=== PATIENT | male | born 1970 | race Caucasian/White ===

== ENCOUNTER 2017-05-27 03:18 | Emergency (ER) | END 2017-05-27 04:44 | disposition home or self-care (01) | DX: G89.29 Other chronic pain (principal); M54.5 Low back pain; M54.2 Cervicalgia; J44.9 Chronic obstructive pulmonary disease, unspecified; F17.200 Nicotine dependence, unspecified, uncomplicated; G43.909 Migraine, unspecified, not intractable, without status migrainosus ==

== ENCOUNTER 2019-03-21 08:04 | Emergency (ER) | payer OTHER ==
[~2019-03-21] VITALS: Ht 180.3 cm; Wt 79.4 kg
[~2019-03-21 08:04] MED LIST: ATROVENT HFA INHALER; HYDROCODONE-ACETAMIN 5-325 MG; METHYLPRED TAB 4MG
[2019-03-21] MEDS ORDERED: LABE100T5 PO (08:23)
[2019-03-21] MEDS ORDERED: PRED50TA PO (08:23)
[2019-03-21] MEDS ORDERED: ALBUTEROL SULFATE (08:23)
[2019-03-21] MEDS ORDERED: BUDE10.2 INH (08:23)
[2019-03-21] MEDS ORDERED: NAPR-1009 PO (08:24)
--- NOTE | 2019-03-21 08:34 | NUR ---
Dr Zhang at the bedside for MSE. Pt admits quit smoking 2 weeks ago.
[2019-03-21] MEDS ORDERED: ALBUTEROL SULFATE 2.5 MG/3 ML NEBU NEB ONE (08:45)
[2019-03-21] MEDS ORDERED: IV NORMAL SALINE 1000 ML BAG IV ONE (08:45)
[2019-03-21] MEDS ORDERED: MAG HYDROX/AL HYDROX/SIMETH 30 ML LIQUID UDC PO ONE (08:45)
[2019-03-21] MEDS ORDERED: IPRATROPIUM BROMIDE 0.5 MG/2.5 ML NEBU NEB ONE (08:45)
[2019-03-21] MEDS ORDERED: DICYCLOMINE HCL LIQ 10 MG/5 ML UDC PO ONE (08:45)
[2019-03-21] MEDS ORDERED: ASPIRIN 325 MG TABLET PO ONE (08:45)
[2019-03-21] MEDS ORDERED: ASPIRIN 325 MG TABLET ONE (08:48)
[2019-03-21] MEDS ORDERED: MAG HYDROX/AL HYDROX/SIMETH 30 ML LIQUID UDC ONE (08:48)
[2019-03-21] MEDS ORDERED: DICYCLOMINE HCL LIQ 10 MG/5 ML UDC ONE (08:49)
[2019-03-21] MEDS ORDERED: IPRATROPIUM BROMIDE 0.5 MG/2.5 ML NEBU ONE (08:50)
[2019-03-21] MEDS ORDERED: ALBUTEROL SULFATE 2.5 MG/3 ML NEBU ONE (08:50)
[2019-03-21 08:55] LABS: BASOPHILS # (AUTO) 0.1 K/uL (0.0-8.0); BASOPHILS % (AUTO) 0.4 % (0.0-2.0); EOSINOPHILS % (AUTO) 0.1 % (0.0-7.0); HEMATOCRIT 43.2 % (36.7-47.1); HEMOGLOBIN 14.4 g/dL (12.5-16.3); LYMPHOCYTES # (AUTO) 1.6 K/uL (20.0-40.0); LYMPHOCYTES % (AUTO) 9.2 % (20.5-51.5); MEAN CORPUSCULAR HGB CONC 33 g/dL (32.5-36.3); MONOCYTES # (AUTO) 0.8 K/uL (2.0-10.0); MONOCYTES % (AUTO) 4.4 % (0.0-11.0); NEUTROPHILS # (AUTO) 15.1 K/uL (1.8-8.9); NEUTROPHILS % (AUTO) 85.9 % (38.5-71.5); PLATELET COUNT (AUTO) 275 K/uL (152-348); RED BLOOD CELL COUNT(AUTO) 4.36 MIL/uL (4.06-5.63); WHITE BLOOD COUNT (AUTO) 17.6 K/uL (3.6-10.2)
[2019-03-21 09:11] LABS: CREATININE 0.9 mg/dL (0.6-1.3); POTASSIUM 3.6 mmol/L (3.5-5.1)
[2019-03-21 09:17] LABS: BILIRUBIN,DIRECT 0.1 mg/dL (0.0-0.2); BILIRUBIN,TOTAL 0.4 mg/dL (0.2-1.0); TOTAL PROTEIN, SERUM 6.2 g/dL (6.4-8.2)
[2019-03-21] MEDS ORDERED: AZITHROMYCIN 500 MG VIAL IV ONE (09:23)
[2019-03-21] MEDS ORDERED: CEFTRIAXONE 1 G VIAL ONE (09:23)
--- NOTE | 2019-03-21 09:26 | NUR ---
Per patient's current insurance- "This patient is capitated to [facility]." This information is verified by ER registration staff Yudy. Process started for telemetry admission, possible transfer now.
[2019-03-21] MEDS ORDERED: CEFTRIAXONE 1 G in IV DEXTROSE 5% 50 ML IV ONE (09:30)
[2019-03-21] MEDS ORDERED: AZITHROMYCIN IV 500 MG in IV DEXTROSE 5% 250 ML IV ONE (09:30)
--- NOTE | 2019-03-21 09:41 | NUR ---
CARISSA Madrigal spoke to [facility] Physician, awaiting return call back.
--- NOTE | 2019-03-21 11:58 | NUR ---
Lunch provided, pt ate w/ good appetite.
--- NOTE | 2019-03-21 12:05 | NUR ---
Awaiting for [facility] transfer center to provide info for bed and transfer.
--- NOTE | 2019-03-21 12:12 | NUR ---
Recieved call from [employer] rep(Lilly), pt will be transfered to ER and No hospital bed avail at this time. Placed a call to Lily, ANGELIC 1400, Trip # [id number]. pt ia aware of tx and agreed.
--- NOTE | 2019-03-21 12:59 | NUR ---
Attempted to give report to [facility] ER, charge nurse not avail. Spoke to other nurse on unit, he stated to send pt's record with Pt.
[2019-03-21] MEDS ORDERED: HALOPERIDOL 0.5 MG TABLET PO ONE (13:15)
[2019-03-21] MEDS ORDERED: HALOPERIDOL 5 MG TABLET ONE (13:20)
--- NOTE | 2019-03-21 15:04 | NUR ---
Report given to transfer travel assistant, copy of all ER record for today sent w/ pt. Pt left ER in stable condition. Belongings sent w/ pt.
== END 2019-03-21 15:08 | disposition short-term general hospital (02) ==
LOC: ER 08:04
DX: J18.9 Pneumonia, unspecified organism (principal); G43.909 Migraine, unspecified, not intractable, without status migrainosus; F32.9 Major depressive disorder, single episode, unspecified; J44.9 Chronic obstructive pulmonary disease, unspecified; I10 Essential (primary) hypertension; F17.200 Nicotine dependence, unspecified, uncomplicated; Z79.899 Other long term (current) drug therapy
CPT/HCPCS: 36415; 71045; 80048; 80076; 83605 ×2; 83880; 84484; 85025; 87040; 87400; 93005; 94640; 96365; 96367; 99285; J0456; J0696; 70030-TC; A4663; J3490; J3590; J7030; J7050

== ENCOUNTER 2019-05-28 08:25 | Emergency (ER) | payer OTHER ==
[~2019-05-28] VITALS: Ht 180.3 cm; Wt 79.4 kg
[~2019-05-28 08:25] MED LIST changes: +ALBUTEROL SULFATE; -ATROVENT HFA INHALER; +BUDE10.2 INH; -HYDROCODONE-ACETAMIN 5-325 MG; +LABE100T5 PO; -METHYLPRED TAB 4MG; +NAPR-1009 PO; +PRED50TA PO
[2019-05-28 09:09] LABS: BASOPHILS % (AUTO) 0.2 % (0.0-2.0); EOSINOPHILS % (AUTO) 0.1 % (0.0-7.0); HEMATOCRIT 40.7 % (36.7-47.1); HEMOGLOBIN 13.6 g/dL (12.5-16.3); LYMPHOCYTES # (AUTO) 1.6 K/uL (20.0-40.0); MEAN CORPUSCULAR HEMOGLOBIN 32.9 uug (23.8-33.4); MEAN CORPUSCULAR HGB CONC 34 g/dL (32.5-36.3); MEAN CORPUSCULAR VOLUME 98.3 fL (73.0-96.2); MONOCYTES # (AUTO) 0.9 K/uL (2.0-10.0); MONOCYTES % (AUTO) 4.3 % (0.0-11.0); NEUTROPHILS # (AUTO) 17.4 K/uL (1.8-8.9); NEUTROPHILS % (AUTO) 87.4 % (38.5-71.5); PLATELET COUNT (AUTO) 254 K/uL (152-348); RED BLOOD CELL COUNT(AUTO) 4.14 MIL/uL (4.06-5.63); WHITE BLOOD COUNT (AUTO) 19.8 K/uL (3.6-10.2)
[2019-05-28] MEDS ORDERED: CEFTRIAXONE 1 G in IV DEXTROSE 5% 50 ML IV ONE (09:30)
[2019-05-28] MEDS ORDERED: AZITHROMYCIN IV 500 MG in IV DEXTROSE 5% 250 ML IV ONE (09:30)
[2019-05-28 09:32] LABS: POTASSIUM 3.4 mmol/L (3.5-5.1)
[2019-05-28] MEDS ORDERED: CEFTRIAXONE /D5W 50ML IVPB **ER PYXIS IV ONE (09:34)
[2019-05-28 09:45] LABS: BILIRUBIN,DIRECT 0.1 mg/dL (0.0-0.2); BILIRUBIN,TOTAL 0.5 mg/dL (0.2-1.0); TOTAL PROTEIN, SERUM 6.2 g/dL (6.4-8.2)
[2019-05-28] MEDS ORDERED: KETOROLAC TROMETHAMINE 15 MG INJ IVP ONE (09:45)
[2019-05-28] MEDS ORDERED: IV NORMAL SALINE 1000 ML BAG IV ONE (09:45)
[2019-05-28] MEDS ORDERED: KETOROLAC TROMETHAMINE 15 MG INJ ONE (09:57)
[2019-05-28] MEDS ORDERED: AZITHROMYCIN 500MG/ D5W 250ML IVPB **ER PYXIS ONLY IV ONE (09:57)
[2019-05-28] MEDS ORDERED: ASPIRIN 81 MG TAB.CHEW ONE (09:57)
[2019-05-28] MEDS ORDERED: ASPIRIN 81 MG TAB.CHEW PO ONE (10:00)
--- NOTE | 2019-05-28 11:05 | NUR ---
talked to [employer] marketing coordinator. dfaxed the clinicals per request to [phone]
--- NOTE | 2019-05-28 11:10 | NUR ---
[facility] info. pt going to , call number [phone]. santhosh smith, [facility] authorization code is [id number].
--- NOTE | 2019-05-28 11:23 | NUR ---
pt going to [facility] via neri, eta 60 min, trip # [id number]
--- NOTE | 2019-05-28 11:31 | NUR ---
[facility] provided for pt per pt request and md garza
--- NOTE | 2019-05-28 12:13 | NUR ---
called to give report to [facility]. put on hold, no body responded. will try again
--- NOTE | 2019-05-28 12:33 | NUR ---
neri at bedside to transfer the pt to [facility]
--- NOTE | 2019-05-28 12:37 | NUR ---
called again to give report, unsuccessfull again. our number was given to sebastián crew to be given to [facility] nurses to call for report.
== END 2019-05-28 12:38 | disposition other institution (70) ==
LOC: ER 08:25
DX: J18.9 Pneumonia, unspecified organism (principal); R07.89 Other chest pain; J44.9 Chronic obstructive pulmonary disease, unspecified; F32.9 Major depressive disorder, single episode, unspecified; I10 Essential (primary) hypertension; F17.290 Nicotine dependence, other tobacco product, uncomplicated; Z79.899 Other long term (current) drug therapy
CPT/HCPCS: 36415; 71045; 80048; 80076; 83605 ×2; 83880; 84145; 84484; 85025; 87040 ×2; 87400; 93005; 96365; 96367; 96375; 99285; 99406; J0456; J0696; J1885; 70030-TC; A4663; J7030

== ENCOUNTER 2019-07-06 14:10 | Emergency (ER) | payer OTHER ==
[~2019-07-06] VITALS: Ht 180.3 cm; Wt 80.7 kg
[~2019-07-06 14:10] MED LIST changes: -ALBUTEROL SULFATE
[2019-07-06] MEDS ORDERED: DILT180C66 PO (14:28)
--- NOTE | 2019-07-06 14:35 | NUR ---
Patient seen by
[2019-07-06] MEDS ORDERED: IV NORMAL SALINE 1000 ML BAG IV ONE (14:45)
[2019-07-06] MEDS ORDERED: ONDANSETRON 4 MG/2 ML VIAL IV ONE (14:45)
[2019-07-06] MEDS ORDERED: ONDANSETRON 4 MG/2 ML VIAL ONE (14:54)
[2019-07-06 14:59] LABS: *BILIRUBIN,URIN NEGATIVE (NEGATIVE); *BLOOD, URINE NEGATIVE (NEGATIVE); *CLARITY,URINE CLEAR (CLEAR); *COLOR,URINE YELLOW (YELLOW); *KETONES,URINE NEGATIVE (NEGATIVE); *UROBILINOGEN,URINE 0.2 E.U./dl (NORMAL); LEUKOCYTE ESTERASE ,URINE NEGATIVE (NEGATIVE); NITRITE, URINE NEGATIVE (NEGATIVE); PH,URINE 6.5 (5.0-8.0); UGLUCOSE NEGATIVE (NEGATIVE)
[2019-07-06] MEDS ORDERED: IOHEXOL 300MG/ML 100 ML INFUS..BTL ONE (15:02)
[2019-07-06] MEDS ORDERED: IV NORMAL SALINE 250 ML IV ONE (15:02)
[2019-07-06] MEDS ORDERED: SWABABLE VALVE TRANSFER SET EA MC ONE (15:02)
[2019-07-06 15:03] LABS: BASOPHILS % (AUTO) 0.1 % (0.0-2.0); HEMATOCRIT 35.5 % (36.7-47.1); HEMOGLOBIN 12.2 g/dL (12.5-16.3); LYMPHOCYTES # (AUTO) 0.9 K/uL (20.0-40.0); LYMPHOCYTES % (AUTO) 7.9 % (20.5-51.5); MEAN CORPUSCULAR HEMOGLOBIN 33.3 uug (23.8-33.4); MEAN CORPUSCULAR HGB CONC 34 g/dL (32.5-36.3); MEAN CORPUSCULAR VOLUME 97.3 fL (73.0-96.2); MONOCYTES # (AUTO) 0.8 K/uL (2.0-10.0); MONOCYTES % (AUTO) 7.4 % (0.0-11.0); NEUTROPHILS # (AUTO) 9.7 K/uL (1.8-8.9); NEUTROPHILS % (AUTO) 84.6 % (38.5-71.5); PLATELET COUNT (AUTO) 401 K/uL (152-348); RED BLOOD CELL COUNT(AUTO) 3.65 MIL/uL (4.06-5.63); WHITE BLOOD COUNT (AUTO) 11.4 K/uL (3.6-10.2)
[2019-07-06 15:05] LABS: POTASSIUM 3.4 mmol/L (3.5-5.1)
[2019-07-06 15:12] LABS: BILIRUBIN,DIRECT 0.1 mg/dL (0.0-0.2); BILIRUBIN,TOTAL 0.3 mg/dL (0.2-1.0); CREATININE 0.9 mg/dL (0.6-1.3)
--- NOTE | 2019-07-06 15:14 | NUR ---
Patient taken down for ct.
[2019-07-06 15:28] LABS: BAND % (MANUAL) 1 % (0-10); LYMPHOCYTES % (MANUAL) 8 % (20-40); NEUTROPHILS % (MANUAL) 81 % (42-75)
[2019-07-06 15:29] LABS: MONOCYTES % (MANUAL) 10 % (2-10)
--- NOTE | 2019-07-06 15:35 | NUR ---
patient back from CT.
[2019-07-06] MEDS ORDERED: FAMOTIDINE. 20 MG/2 ML VIAL IV ONE ×2 (16:25→16:30)
[2019-07-06] MEDS ORDERED: MAGNESIUM HYDROXIDE 30 ML LIQUID UDC ONE (16:27)
[2019-07-06] MEDS ORDERED: LIDOCAINE VISCUS 2% 15 ML UDC ONE (16:29)
[2019-07-06] MEDS ORDERED: LIDOCAINE VISCUS 2% 15 ML UDC MM ONE (16:30)
[2019-07-06] MEDS ORDERED: MAG HYDROX/AL HYDROX/SIMETH 30 ML LIQUID UDC PO ONE (16:30)
--- NOTE | 2019-07-06 16:38 | NUR ---
DCD instructiona and prescription given to patient who verbalized understanding. IV line dcd. patient left room ambulatory AAOx4. No c/of discomfort.
--- NOTE | 2019-07-06 16:48 | NUR ---
at this time patient requesting breathing treatment, Dr. spann and RT called in the unit.
[2019-07-06] MEDS ORDERED: ALBUTEROL SULFATE 2.5 MG/3 ML NEBU ONE (16:55)
[2019-07-06] MEDS ORDERED: ALBUTEROL SULFATE 2.5 MG/3 ML NEBU NEB ONE (17:00)
[2019-08-06] MEDS ORDERED: LABE100T5 PO (17:25)
[2019-08-06] MEDS ORDERED: ALBU8.5H8 IH (17:25)
[2019-08-06] MEDS ORDERED: HYDR-4384 PO (17:25)
[2019-08-06] MEDS ORDERED: TRAM50TA2 PO (17:25)
[2019-08-06] MEDS ORDERED: FLUT1BLS12 IH (17:25)
== END 2019-07-06 17:22 | disposition home or self-care (01) ==
LOC: ER 14:10
DX: K59.00 Constipation, unspecified (principal); F17.200 Nicotine dependence, unspecified, uncomplicated; G43.909 Migraine, unspecified, not intractable, without status migrainosus; J44.9 Chronic obstructive pulmonary disease, unspecified; F32.9 Major depressive disorder, single episode, unspecified; I10 Essential (primary) hypertension; Z79.899 Other long term (current) drug therapy; Z60.2 Problems related to living alone
CPT/HCPCS: 36415; 74177; 80048; 80076; 81001; 83690; 85007; 85025; 94640; 96374; 96375; 99285; J2405; J3490; Q9967; 70030-TC; A4663; J7030; J7050

== ENCOUNTER 2019-08-06 17:09 | Emergency (ER) | payer OTHER ==
[~2019-08-06] VITALS: Ht 175.3 cm; Wt 78.9 kg
--- NOTE | 2019-08-06 18:23 | NUR ---
Dr [email or web address], MSE in progress
[2019-08-06 18:49] LABS: BASOPHILS % (AUTO) 0.2 % (0.0-2.0); EOSINOPHILS # (AUTO) 0.1 K/uL (0.0-0.7); EOSINOPHILS % (AUTO) 1.1 % (0.0-7.0); HEMATOCRIT 34.9 % (36.7-47.1); HEMOGLOBIN 12.1 g/dL (12.5-16.3); LYMPHOCYTES # (AUTO) 2.8 K/uL (20.0-40.0); LYMPHOCYTES % (AUTO) 33.3 % (20.5-51.5); MEAN CORPUSCULAR HEMOGLOBIN 33.4 uug (23.8-33.4); MEAN CORPUSCULAR HGB CONC 35 g/dL (32.5-36.3); MONOCYTES # (AUTO) 0.5 K/uL (2.0-10.0); MONOCYTES % (AUTO) 6.5 % (0.0-11.0); NEUTROPHILS % (AUTO) 58.9 % (38.5-71.5); PLATELET COUNT (AUTO) 535 K/uL (152-348); RED BLOOD CELL COUNT(AUTO) 3.63 MIL/uL (4.06-5.63); WHITE BLOOD COUNT (AUTO) 8.4 K/uL (3.6-10.2)
[2019-08-06 18:50] LABS: CARBON DIOXIDE 28 mmol/L (21-32); CHLORIDE 104 mmol/L (98-107); CREATININE 1.1 mg/dL (0.6-1.3); GLUCOSE 123 mg/dL (74-106); UREA NITROGEN, BLOOD 14 mg/dL (7-18)
[2019-08-06 18:56] LABS: ACETAMINOPHEN < 2.0 ug/mL (10-30); ALANINE AMINOTRANSFERASE 23 U/L (16-63); ALKALINE PHOSPHATASE 66 U/L (50-136); ASPARTATE AMINOTRANSFERASE 10 U/L (15-37); BILIRUBIN,DIRECT 0.1 mg/dL (0.0-0.2); BILIRUBIN,TOTAL 0.2 mg/dL (0.2-1.0); ETHANOL < 3 MG/DL (0-0); TOTAL PROTEIN, SERUM 5.7 g/dL (6.4-8.2)
[2019-08-06] MEDS ORDERED: POTASSIUM CHLORIDE 20 MEQ TAB.PRT.SR PO ONE (19:15)
[2019-08-06 19:43] LABS: *BILIRUBIN,URIN NEGATIVE (NEGATIVE); *BLOOD, URINE NEGATIVE (NEGATIVE); *CLARITY,URINE CLEAR (CLEAR); *COLOR,URINE YELLOW (YELLOW); *KETONES,URINE NEGATIVE (NEGATIVE); *UROBILINOGEN,URINE 0.2 E.U./dl (NORMAL); LEUKOCYTE ESTERASE ,URINE NEGATIVE (NEGATIVE); NITRITE, URINE NEGATIVE (NEGATIVE); UGLUCOSE NEGATIVE (NEGATIVE)
[2019-08-06 19:51] LABS: CALCIUM OXALATE CRYSTALS,UR FEW /HPF (NONE SEEN); MUCUS,URINE MANY /LPF (0-FEW); WBC,URINE 0-3 /HPF (0-3)
[2019-08-06 19:55] LABS: *AMPHETAMINE, URINE NEGATIVE (NEGATIVE); *BARBITURATE, URINE NEGATIVE (NEGATIVE); *CANNABINOID, URINE NEGATIVE (NEGATIVE); *COCCAINE, URINE NEGATIVE (NEGATIVE); *OPIATE, URINE NEGATIVE (NEGATIVE); *PHENCYCLIDINE SCREEN,URINE NEGATIVE (NEGATIVE)
--- NOTE | 2019-08-06 20:02 | NUR ---
SPOKE WITH PINKY FOR EVAL. PER DR BENZ PATIENT MEDICALLY CLEARED.
--- NOTE | 2019-08-06 20:15 | NUR ---
Patient moved from RM 3 to RM 2A, security at bedside for patient watch. SR up x 2 for safety. Patient calm and cooperative.
[2019-08-06] MEDS ORDERED: POTASSIUM CHLORIDE 20 MEQ TAB.PRT.SR ONE (20:18)
--- NOTE | 2019-08-06 21:04 | NUR ---
Morrisy psych associate quality engineer came to evaulate patient. Pt placed on a voluntary hold.
--- NOTE | 2019-08-06 22:00 | NUR ---
pt asleep refused vital signs. No acute distress.
--- NOTE | 2019-08-06 22:31 | NUR ---
Patient in gurney, resting comfortably. No acute distress, security at bedside for 1:1 observation. SR up x 2 for saftey.
--- NOTE | 2019-08-06 22:54 | NUR ---
Spoke with Corona in the intake at [facility] [phone]. Per Corona they are still reviewing the information.
--- NOTE | 2019-08-07 | NUR ---
Pt asleep at this time. Refused vital signs.
--- NOTE | 2019-08-07 00:09 | NUR ---
Spoke with Maria Guadalupe from [facility] Kush Cardona. per staff still awaiting approval and will call back once there is an update. Provided phone number to ED
--- NOTE | 2019-08-07 01:08 | NUR ---
Patient asleep in [facility]. No acute distress. Pending admission to psych unit, pending accepting facility.
--- NOTE | 2019-08-07 01:50 | NUR ---
Spoke with Maria Guadalupe at [facility], stated that they aware awaiting approval from [facility], and they will call me back when they get an update. Patient asleep in [facility] at this time. Refused vital signs.
--- NOTE | 2019-08-07 02:51 | NUR ---
Placed call to [facility], was informed that they have no information on this patient at this time.
--- NOTE | 2019-08-07 03:39 | NUR ---
Received call from Maria Guadalupe at [facility] Kush Martinez, per Maria Guadalupe, they are still awaiting approval from electrician apprentice powerhouse at [facility].
--- NOTE | 2019-08-07 04:10 | NUR ---
Patient asleep at this time. Refused to be awaken for vital signs. Patient in no acute distress.
--- NOTE | 2019-08-07 05:48 | NUR ---
Patient in [facility], asleep no acute distress, agreed to vital signs. Vital signs stable, denies pain.
--- NOTE | 2019-08-07 07:33 | NUR ---
SBAR report given to Fely.
--- NOTE | 2019-08-07 08:55 | NUR ---
Contacted Corona oil field caser for [facility], stated that he will call back in 5 minutes..
--- NOTE | 2019-08-07 09:20 | NUR ---
[facility] and stated that he will call me back in 5 minutes.
[2019-08-07] MEDS ORDERED: LABETALOL HCL 100 MG TABLET PO ONE (09:45)
[2019-08-07] MEDS ORDERED: LABETALOL HCL 100 MG TABLET ONE (09:45)
[2019-08-07] MEDS ORDERED: DILTIAZEM HCL CD 120 MG CAP.SR.24H PO ONE ×2 (09:45)
[2019-08-07] MEDS ORDERED: predniSONE 20 MG TABLET ONE (09:45)
[2019-08-07] MEDS ORDERED: predniSONE 20 MG TABLET PO ONE (09:45)
[2019-08-07 09:49] VITALS: BP 101/67
--- NOTE | 2019-08-07 09:55 | NUR ---
Call made to Corona, which is now off shift, and [facility] stated that she will contact gas station supervisor and return a call back..
[2019-08-07] MEDS ORDERED: AMOXICILLIN-CLAVUL 875-125MG TABLET PO ONE (10:15)
--- NOTE | 2019-08-07 10:35 | NUR ---
Contacted Claudia to give report for transfer, upon report antibiotic identified as medication given this morning, patient had been on augmentin for Pneumonia (reported by patient and active prescription bottle in personal belongings), a request for cxr made to clear patient for transfer. This keno writer / runner notified that patient may not be accepted if he has active pulmonary concerns.
--- NOTE | 2019-08-07 11:00 | NUR ---
[facility] and does not show pneumonia, and left lung bases show scarring which are unchanged for CXR several months ago.
--- NOTE | 2019-08-07 11:45 | NUR ---
Report called to Gita at [facility]. Vitals stable, no distress noted at this time. Patient calm and cooperative. Discharge to ambulance for transfer pending.
--- NOTE | 2019-08-07 12:44 | NUR ---
Patient being picked up at this time by Ambulance.
== END 2019-08-07 12:45 | disposition short-term general hospital (02) ==
LOC: ER 17:14
DX: F32.9 Major depressive disorder, single episode, unspecified (principal); R45.851 Suicidal ideations; Z71.6 Tobacco abuse counseling; I48.91 Unspecified atrial fibrillation; J44.9 Chronic obstructive pulmonary disease, unspecified; I10 Essential (primary) hypertension; F17.290 Nicotine dependence, other tobacco product, uncomplicated; Z79.899 Other long term (current) drug therapy
CPT/HCPCS: 36415; 71045; 80048; 80076; 80307; 81000; 81001; 85025; 93005; 99285; 99406; G0480 ×2; G0481; J7512; A4663

== ENCOUNTER 2019-08-24 19:26 | Emergency (ER) | payer OTHER ==
[~2019-08-24] VITALS: Ht 172.7 cm; Wt 76.9 kg
[~2019-08-24 19:26] MED LIST changes: +ALBU8.5H8 IH; +DILT180C66 PO; +FLUT1BLS12 IH; +HYDR-4384 PO; +TRAM50TA2 PO
--- NOTE | 2019-08-24 19:41 | NUR ---
PATIENT WAS MSE BY DR SERRATO IN ROOM 04A.
[2019-08-24] MEDS ORDERED: ALBUTEROL SULFATE 2.5 MG/3 ML NEBU NEB ONE (19:45)
[2019-08-24] MEDS ORDERED: IPRATROPIUM BROMIDE 0.5 MG/2.5 ML NEBU NEB ONE (19:45)
[2019-08-24] MEDS ORDERED: predniSONE 10 MG TABLET PO ONE (19:45)
[2019-08-24] MEDS ORDERED: predniSONE 20 MG TABLET ONE (19:57)
[2019-08-24 19:59] LABS: BASOPHILS % (AUTO) 0.1 % (0.0-2.0); HEMATOCRIT 39.7 % (36.7-47.1); HEMOGLOBIN 13.4 g/dL (12.5-16.3); LYMPHOCYTES # (AUTO) 0.6 K/uL (20.0-40.0); LYMPHOCYTES % (AUTO) 3.8 % (20.5-51.5); MEAN CORPUSCULAR HEMOGLOBIN 32.8 uug (23.8-33.4); MEAN CORPUSCULAR HGB CONC 34 g/dL (32.5-36.3); MONOCYTES # (AUTO) 0.3 K/uL (2.0-10.0); MONOCYTES % (AUTO) 2.1 % (0.0-11.0); NEUTROPHILS # (AUTO) 13.6 K/uL (1.8-8.9); PLATELET COUNT (AUTO) 273 K/uL (152-348); RED BLOOD CELL COUNT(AUTO) 4.09 MIL/uL (4.06-5.63); WHITE BLOOD COUNT (AUTO) 14.5 K/uL (3.6-10.2)
[2019-08-24] MEDS ORDERED: IPRATROPIUM BROMIDE 0.5 MG/2.5 ML NEBU ONE (20:04)
[2019-08-24] MEDS ORDERED: ALBUTEROL SULFATE 2.5 MG/ 0.5 ML NEBU ONE (20:04)
[2019-08-24 20:07] LABS: CREATININE 1.4 mg/dL (0.6-1.3); POTASSIUM 4.5 mmol/L (3.5-5.1)
[2019-08-24 20:19] LABS: BILIRUBIN,DIRECT 0.1 mg/dL (0.0-0.2); BILIRUBIN,TOTAL 0.5 mg/dL (0.2-1.0)
--- NOTE | 2019-08-24 21:25 | NUR ---
DR SERRATO MADE PATIENT AWARE OF TEST RESULTS WILL DC HOME.
[2019-08-24 21:39] VITALS: BP 111/77
== END 2019-08-24 21:43 | disposition home or self-care (01) ==
LOC: ER 19:27
DX: J44.1 Chronic obstructive pulmonary disease with (acute) exacerbation (principal); F17.210 Nicotine dependence, cigarettes, uncomplicated; I10 Essential (primary) hypertension; Z86.79 Personal history of other diseases of the circulatory system; N28.9 Disorder of kidney and ureter, unspecified; J90 Pleural effusion, not elsewhere classified
CPT/HCPCS: 99285; 36415; 71045; 80048; 80076; 83880; 84484; 85025; 93005; 94640; J7512; 70030-TC; A4663; J3590

== ENCOUNTER 2019-09-15 07:57 | Emergency (ER) | payer OTHER ==
[~2019-09-15] VITALS: Ht 175.3 cm; Wt 77.1 kg
--- NOTE | 2019-09-15 08:13 | NUR ---
PTIS IN ROOM #3. DR MALONEY EVALUATED THE PT.
[2019-09-15] MEDS ORDERED: ALBUTEROL SULFATE 2.5 MG/3 ML NEBU NEB ONE (08:15)
[2019-09-15] MEDS ORDERED: IPRATROPIUM BROMIDE 0.5 MG/2.5 ML NEBU NEB ONE (08:15)
[2019-09-15] MEDS ORDERED: IPRATROPIUM BROMIDE 0.5 MG/2.5 ML NEBU ONE (08:22)
[2019-09-15] MEDS ORDERED: ALBUTEROL SULFATE 2.5 MG/3 ML NEBU ONE (08:22)
--- NOTE | 2019-09-15 08:57 | NUR ---
Pt was d/c'd to home. d/c instructions given to the pt by dr Zhang.
[2019-09-15 08:58] VITALS: BP 121/72
== END 2019-09-15 09:08 | disposition home or self-care (01) ==
LOC: ER 07:57
DX: J44.1 Chronic obstructive pulmonary disease with (acute) exacerbation (principal); Z79.51 Long term (current) use of inhaled steroids; Z79.52 Long term (current) use of systemic steroids; Z79.899 Other long term (current) drug therapy; E78.5 Hyperlipidemia, unspecified; I10 Essential (primary) hypertension
CPT/HCPCS: 94664; A4663; J3590

== ENCOUNTER 2019-09-27 08:08 | Emergency (ER) | payer OTHER ==
[~2019-09-27] VITALS: Ht 175.3 cm; Wt 77.1 kg
--- NOTE | 2019-09-27 08:34 | NUR ---
Dr Agustin at the bedside for MSE.
--- NOTE | 2019-09-27 09:06 | NUR ---
Pt back from Ct, NAD noted, resting in bed.
[2019-09-27] MEDS ORDERED: KETOROLAC TROMETHAMINE 30 MG INJ ONE (09:41)
[2019-09-27] MEDS ORDERED: KETOROLAC TROMETHAMINE 30 MG INJ IM ONE (09:45)
[2019-09-27 09:52] VITALS: BP 120/66
--- NOTE | 2019-09-27 09:58 | NUR ---
Patient discharged to home in stable condition. Written and verbal after care instructions given. Patient verbalizes understanding of instructions. Stressed follow up or return to ER for worsening s/s. Pt left ER w/ steady gait.
== END 2019-09-27 09:59 | disposition home or self-care (01) ==
LOC: ER 08:08
DX: S06.9X1A Unspecified intracranial injury with loss of consciousness of 30 minutes or less, initial encounter (principal); W01.0XXA Fall on same level from slipping, tripping and stumbling without subsequent striking against object, initial encounter; Y93.01 Activity, walking, marching and hiking; Y92.89 Other specified places as the place of occurrence of the external cause; S00.83XA Contusion of other part of head, initial encounter; S13.9XXA Sprain of joints and ligaments of unspecified parts of neck, initial encounter; M25.78 Osteophyte, vertebrae; M50.322 Other cervical disc degeneration at C5-C6 level; J44.9 Chronic obstructive pulmonary disease, unspecified; I10 Essential (primary) hypertension; Z79.899 Other long term (current) drug therapy; Z79.51 Long term (current) use of inhaled steroids
CPT/HCPCS: 70450; 70486; 72125; 99285; J1885; A4663

== ENCOUNTER 2019-11-08 13:37 | Emergency (ER) | payer OTHER ==
[~2019-11-08] VITALS: Ht 175.3 cm; Wt 77.1 kg
[2019-11-08] MEDS ORDERED: DICYCLOMINE HCL 20 MG/2 ML AMPUL IM SCH (14:00)
[2019-11-08] MEDS ORDERED: LORAZEPAM 2 MG/1 ML VIAL IV ONE (14:00)
[2019-11-08] MEDS ORDERED: LORAZEPAM 2 MG/1 ML VIAL ONE (14:01)
[2019-11-08 14:26] LABS: BASOPHILS % (AUTO) 0.2 % (0.0-2.0); EOSINOPHILS # (AUTO) 0.1 K/uL (0.0-0.7); EOSINOPHILS % (AUTO) 0.8 % (0.0-7.0); HEMATOCRIT 39.1 % (36.7-47.1); HEMOGLOBIN 12.8 g/dL (12.5-16.3); LYMPHOCYTES # (AUTO) 1.1 K/uL (20.0-40.0); LYMPHOCYTES % (AUTO) 11.9 % (20.5-51.5); MEAN CORPUSCULAR HEMOGLOBIN 31.2 uug (23.8-33.4); MEAN CORPUSCULAR HGB CONC 33 g/dL (32.5-36.3); MEAN CORPUSCULAR VOLUME 95.1 fL (73.0-96.2); MONOCYTES # (AUTO) 0.3 K/uL (2.0-10.0); MONOCYTES % (AUTO) 3.2 % (0.0-11.0); NEUTROPHILS # (AUTO) 7.8 K/uL (1.8-8.9); NEUTROPHILS % (AUTO) 83.9 % (38.5-71.5); PLATELET COUNT (AUTO) 346 K/uL (152-348); RED BLOOD CELL COUNT(AUTO) 4.12 MIL/uL (4.06-5.63); WHITE BLOOD COUNT (AUTO) 9.3 K/uL (3.6-10.2)
[2019-11-08 14:44] LABS: CARBON DIOXIDE 25 mmol/L (21-32); CHLORIDE 105 mmol/L (98-107); CREATININE 1.4 mg/dL (0.6-1.3); GLUCOSE 126 mg/dL (74-106); UREA NITROGEN, BLOOD 14 mg/dL (7-18)
[2019-11-08 14:49] LABS: ALANINE AMINOTRANSFERASE 26 U/L (16-63); ALKALINE PHOSPHATASE 72 U/L (50-136); ASPARTATE AMINOTRANSFERASE 28 U/L (15-37); BILIRUBIN,DIRECT < 0.1 mg/dL (0.0-0.2); BILIRUBIN,TOTAL 0.3 mg/dL (0.2-1.0); TOTAL PROTEIN, SERUM 6.4 g/dL (6.4-8.2)
[2019-11-08 14:58] LABS: LIPASE 200 U/L (73-393)
[2019-11-08] MEDS ORDERED: ISOS60TA4 PO (14:58)
[2019-11-08 15:26] LABS: *BILIRUBIN,URIN NEGATIVE (NEGATIVE); *BLOOD, URINE NEGATIVE (NEGATIVE); *CLARITY,URINE SLIGHTLY CLOUDY (CLEAR); *COLOR,URINE LIGHT YELLOW (YELLOW); *KETONES,URINE NEGATIVE (NEGATIVE); *UROBILINOGEN,URINE 0.2 E.U./dl (NORMAL); LEUKOCYTE ESTERASE ,URINE NEGATIVE (NEGATIVE); NITRITE, URINE NEGATIVE (NEGATIVE); UGLUCOSE NEGATIVE (NEGATIVE)
[2019-11-08] MEDS ORDERED: KETOROLAC TROMETHAMINE 30 MG INJ IVP ONE (16:00)
[2019-11-08] MEDS ORDERED: KETOROLAC TROMETHAMINE 30 MG INJ ONE (16:01)
[2019-11-08] MEDS ORDERED: methylPREDNISolone SOD SUCC 125 MG/2 ML VIAL ONE (16:10)
[2019-11-08] MEDS ORDERED: methylPREDNISolone SOD SUCC 125 MG/2 ML VIAL IV ONE (16:15)
--- NOTE | 2019-11-08 16:20 | NUR ---
Patient discharged to home in stable condition. Written and verbal after care instructions given. Patient verbalizes understanding of instructions. Stressed follow up or return to ER for worsening s/s.PT WAKLS IN STEADY GAIT. PT STATES THAT HAS OWN PMD AND WILL FOLLOW UP.
[2019-11-08 16:21] VITALS: BP 106/61
== END 2019-11-08 16:23 | disposition home or self-care (01) ==
LOC: ER 13:37
DX: R10.9 Unspecified abdominal pain (principal); J44.9 Chronic obstructive pulmonary disease, unspecified; F17.210 Nicotine dependence, cigarettes, uncomplicated; G89.4 Chronic pain syndrome; E78.5 Hyperlipidemia, unspecified; R94.31 Abnormal electrocardiogram [ECG] [EKG]; Z79.899 Other long term (current) drug therapy
CPT/HCPCS: 36415; 74176; 80048; 80076; 81001; 83690; 84484; 85025; 93005; 96372; 96374; 96375; 99285; 99406; J0500; J1885; J2060; J2930; 70030-TC; 87086; A4663

== ENCOUNTER 2019-11-22 06:29 | Emergency (ER) | payer OTHER ==
[~2019-11-22] VITALS: Ht 175.3 cm; Wt 83.9 kg
[~2019-11-22 06:29] MED LIST changes: -DILT180C66 PO; -FLUT1BLS12 IH; +ISOS60TA4 PO
[2019-11-22 07:04] VITALS: BP 120/69
--- NOTE | 2019-11-22 07:04 | NUR ---
Patient discharged to home in stable condition. Written and verbal after care instructions given. Patient verbalizes understanding of instructions. Stressed follow up or return to ER for worsening s/s.
== END 2019-11-22 07:05 | disposition home or self-care (01) ==
LOC: ER 06:40
DX: S00.412A Abrasion of left ear, initial encounter (principal); S00.411A Abrasion of right ear, initial encounter; W45.8XXA Other foreign body or object entering through skin, initial encounter; Y93.89 Activity, other specified; Y92.89 Other specified places as the place of occurrence of the external cause; H92.03 Otalgia, bilateral; G89.4 Chronic pain syndrome; J44.9 Chronic obstructive pulmonary disease, unspecified; E78.5 Hyperlipidemia, unspecified; I10 Essential (primary) hypertension; Z79.899 Other long term (current) drug therapy
CPT/HCPCS: A4663

== ENCOUNTER 2019-12-11 04:34 | Emergency (ER) | payer OTHER ==
[~2019-12-11] VITALS: Ht 175.3 cm; Wt 70.3 kg
--- NOTE | 2019-12-11 04:52 | NUR ---
Dr. Zhang at bedside for MSE.
[2019-12-11] MEDS ORDERED: ASPIRIN 325 MG TABLET ONE (05:07)
[2019-12-11] MEDS ORDERED: NITROGLYCERIN 0.4 MG/TAB BOTTLE SL ONE (05:08)
--- NOTE | 2019-12-11 05:08 | NUR ---
Xray at bedside.
[2019-12-11] MEDS: IV NORMAL SALINE 1000 ML BAG IV ONE (05:13)
[2019-12-11] MEDS: ASPIRIN 325 MG TABLET PO ONE (05:13)
[2019-12-11] MEDS: NITROGLYCERIN 0.4 MG/TAB BOTTLE SL ONE (05:14)
[2019-12-11 05:16] LABS: HEMATOCRIT 35.5 % (36.7-47.1); LYMPHOCYTES % (AUTO) 6.9 % (20.5-51.5); MEAN CORPUSCULAR HEMOGLOBIN 31.8 uug (23.8-33.4); MEAN CORPUSCULAR HGB CONC 34 g/dL (32.5-36.3); MEAN CORPUSCULAR VOLUME 93.9 fL (73.0-96.2); MONOCYTES # (AUTO) 0.9 K/uL (2.0-10.0); MONOCYTES % (AUTO) 6.3 % (0.0-11.0); NEUTROPHILS # (AUTO) 12.8 K/uL (1.8-8.9); NEUTROPHILS % (AUTO) 86.8 % (38.5-71.5); PLATELET COUNT (AUTO) 428 K/uL (152-348); RED BLOOD CELL COUNT(AUTO) 3.78 MIL/uL (4.06-5.63); WHITE BLOOD COUNT (AUTO) 14.8 K/uL (3.6-10.2)
--- NOTE | 2019-12-11 05:17 | NUR ---
Patient still has chest pain, gave 2nd dose of nitroglycerin. BP 128/76, HR 81. Patient states pain reduced from 7 to 6.
[2019-12-11 05:19] LABS: CREATININE 1.1 mg/dL (0.6-1.3)
--- NOTE | 2019-12-11 05:24 | NUR ---
Pt states still has chest pain, gave 3rd dose of Nitroglycerin. BP 121/76 HR 79
[2019-12-11 05:31] LABS: BILIRUBIN,DIRECT 0.1 mg/dL (0.0-0.2); BILIRUBIN,TOTAL 0.2 mg/dL (0.2-1.0); TOTAL PROTEIN, SERUM 5.8 g/dL (6.4-8.2)
[2019-12-11] MEDS: DICYCLOMINE HCL LIQ 10 MG/5 ML UDC PO ONE (05:44)
[2019-12-11] MEDS: MAG HYDROX/AL HYDROX/SIMETH 30 ML LIQUID UDC PO ONE (05:44)
[2019-12-11] MEDS ORDERED: MAG HYDROX/AL HYDROX/SIMETH 30 ML LIQUID UDC ONE (05:45)
[2019-12-11] MEDS ORDERED: DICYCLOMINE HCL LIQ 10 MG/5 ML UDC ONE (05:45)
--- NOTE | 2019-12-11 05:51 | NUR ---
Patient discharged to home in stable condition. Written and verbal after care instructions given. Patient verbalizes understanding of instructions. Stressed follow up or return to ER for worsening s/s. Patient ambulated out of ER with steady gait, no acute signs of distress, VSS, all belongings taken, IV site discontinued, Patient provided with copies of lab and xrays.
[2019-12-11 05:52] VITALS: BP 128/83
== END 2019-12-11 06:00 | disposition home or self-care (01) ==
LOC: ER 04:36
DX: R07.89 Other chest pain (principal); D72.829 Elevated white blood cell count, unspecified; I45.10 Unspecified right bundle-branch block; G89.4 Chronic pain syndrome; J44.9 Chronic obstructive pulmonary disease, unspecified; K21.9 Gastro-esophageal reflux disease without esophagitis; M54.12 Radiculopathy, cervical region; S12.400S Unspecified displaced fracture of fifth cervical vertebra, sequela; X58.XXXS Exposure to other specified factors, sequela; E78.5 Hyperlipidemia, unspecified; I11.0 Hypertensive heart disease with heart failure; I50.9 Heart failure, unspecified; Z79.52 Long term (current) use of systemic steroids; Z79.899 Other long term (current) drug therapy
CPT/HCPCS: 36415; 70030-TC; 71045; 85025; 85730; 93005; A4663; J7030

== ENCOUNTER 2019-12-30 18:33 | Emergency (ER) | payer OTHER ==
[~2019-12-30] VITALS: Ht 175.3 cm; Wt 74.8 kg
--- NOTE | 2019-12-30 18:45 | NUR ---
Dr. Melendez at bedside for MSE
--- NOTE | 2019-12-30 19:07 | NUR ---
Report given to Carlyn ROGERS
--- NOTE | 2019-12-30 19:08 | NUR ---
Attempted to call house sup, unable to reach at this time Will all back Suicide precaution in place. bed locked lowest position. Will continue to monitor pt
--- NOTE | 2019-12-30 19:15 | NUR ---
pt in bed, resting aa/ox4. able to speak in complete sentences respirations even and unlabored no s/s of distress safety precaution in place. bed locked, lowest position. Will continue to monitor
--- NOTE | 2019-12-30 19:16 | NUR ---
S/W Incoming nursing education supervisor at this time. Informed her of SI patient, per education supervisor, monitor the patient for now and willl review staffing for this evening with outgoing education supervisor. Gita ROGERS is primary nurse and is monitoring the patient closely. All suicide precautions are in place.
--- NOTE | 2019-12-30 19:22 | NUR ---
Patient informed that he has to change into hospital gown per SI protocols. However, patient refused to remove clothing because he stated that he is feeling cold and chills. Avoided aggravating the patient, so honored his request. However, patient's pockets were all checked, removed all contrabands including found lighters, wallet with chains, and belt. Placed all objects obtained from patient in a plastic bag, secured with the rest of his belongings. Witnessed by Gita ROGERS. Continued to be monitored at this time.
--- NOTE | 2019-12-30 19:30 | NUR ---
Pt in bed, resting no s/s of distress suicide precaution in place. bed locked, lowest position. will continue to monitor pt
--- NOTE | 2019-12-30 19:35 | NUR ---
Called Maria Isabel from Crisis team for psych eval. ETA 1 hour.
[2019-12-30 19:40] LABS: CARBON DIOXIDE 29 mmol/L (21-32); CHLORIDE 101 mmol/L (98-107); CREATININE 1.2 mg/dL (0.6-1.3); GLUCOSE 129 mg/dL (74-106); POTASSIUM 4.6 mmol/L (3.5-5.1); UREA NITROGEN, BLOOD 19 mg/dL (7-18)
[2019-12-30 19:41] LABS: HEMATOCRIT 35.7 % (36.7-47.1); HEMOGLOBIN 12.1 g/dL (12.5-16.3); LYMPHOCYTES # (AUTO) 0.4 K/uL (20.0-40.0); LYMPHOCYTES % (AUTO) 5.8 % (20.5-51.5); MEAN CORPUSCULAR HEMOGLOBIN 31.8 uug (23.8-33.4); MEAN CORPUSCULAR HGB CONC 34 g/dL (32.5-36.3); MEAN CORPUSCULAR VOLUME 93.5 fL (73.0-96.2); MONOCYTES # (AUTO) 0.1 K/uL (2.0-10.0); MONOCYTES % (AUTO) 0.8 % (0.0-11.0); NEUTROPHILS # (AUTO) 6.3 K/uL (1.8-8.9); NEUTROPHILS % (AUTO) 93.4 % (38.5-71.5); PLATELET COUNT (AUTO) 287 K/uL (152-348); RED BLOOD CELL COUNT(AUTO) 3.81 MIL/uL (4.06-5.63); WHITE BLOOD COUNT (AUTO) 6.7 K/uL (3.6-10.2)
--- NOTE | 2019-12-30 19:45 | NUR ---
pt in bed, resting no s/s of distress will continue to monitor pt
[2019-12-30 19:46] LABS: *BILIRUBIN,URIN NEGATIVE (NEGATIVE); *BLOOD, URINE NEGATIVE (NEGATIVE); *CLARITY,URINE CLEAR (CLEAR); *COLOR,URINE LIGHT YELLOW (YELLOW); *KETONES,URINE NEGATIVE (NEGATIVE); *UROBILINOGEN,URINE 0.2 E.U./dl (NORMAL); LEUKOCYTE ESTERASE ,URINE NEGATIVE (NEGATIVE); NITRITE, URINE NEGATIVE (NEGATIVE); UGLUCOSE NEGATIVE (NEGATIVE)
[2019-12-30 19:46] LABS: ETHANOL < 3 MG/DL (0-0)
[2019-12-30 19:52] LABS: *AMPHETAMINE, URINE NEGATIVE (NEGATIVE); *BARBITURATE, URINE NEGATIVE (NEGATIVE); *CANNABINOID, URINE NEGATIVE (NEGATIVE); *COCCAINE, URINE NEGATIVE (NEGATIVE); *OPIATE, URINE POSITIVE (NEGATIVE); *PHENCYCLIDINE SCREEN,URINE NEGATIVE (NEGATIVE)
[2019-12-30 19:54] LABS: ACETAMINOPHEN < 2.0 ug/mL (10-30); ALANINE AMINOTRANSFERASE 19 U/L (16-63); ALKALINE PHOSPHATASE 71 U/L (50-136); ASPARTATE AMINOTRANSFERASE 15 U/L (15-37); BILIRUBIN,DIRECT 0.1 mg/dL (0.0-0.2); BILIRUBIN,TOTAL 0.5 mg/dL (0.2-1.0); CREATINE KINASE, TOTAL 39 U/L (39-308); TOTAL PROTEIN, SERUM 6.5 g/dL (6.4-8.2)
--- NOTE | 2019-12-30 20:00 | NUR ---
pt in bed, resting. no s/s of distress safety precaution in place. bed locked, lowest position will continue to monitor pt closely
--- NOTE | 2019-12-30 20:15 | NUR ---
pt in bed, awake, resting no s/s of distress will continue to monitor pt
--- NOTE | 2019-12-30 20:16 | NUR ---
Maria Isabel from Crisis team in facility
--- NOTE | 2019-12-30 20:19 | NUR ---
Maria Isabel from Crisis team at bedside for psych eval
--- NOTE | 2019-12-30 20:30 | NUR ---
pt in bed, resting, awake no s/s of distress noted offered pt sandwich will continue to monitor pt
--- NOTE | 2019-12-30 20:45 | NUR ---
pt in bed awake, resting able to consume 100% of meal no s/s of distress safety precautions in place. will continue to monitor pt
--- NOTE | 2019-12-30 21:00 | NUR ---
pt in bed, resting. easily arousable no s/s of distress respirations even and unlabored will continue to monitor pt
--- NOTE | 2019-12-30 21:15 | NUR ---
pt in bed, asleep. easily arousable no s/s of distress safety precautions in place will continue to monitor pt
--- NOTE | 2019-12-30 21:30 | NUR ---
pt in bed, asleep. esily arousable no s/s of distress safety precautions in place. bed locked, lowest position will continue to monitor
--- NOTE | 2019-12-30 22:00 | NUR ---
1:1 sitter by Security Blair
--- NOTE | 2019-12-30 22:12 | NUR ---
pt accepted at [facility] Kush Martinez ext [phone] Mcdonnell
--- NOTE | 2019-12-30 22:15 | NUR ---
pt in bed, asleep. easily arousable no s/s of distress 1:1 sitter with security Blair will continue to monitor
--- NOTE | 2019-12-30 22:27 | NUR ---
Spoke with Rahul from [facility]. ETA [phone]
--- NOTE | 2019-12-30 22:30 | NUR ---
pt in bed asleep. easily arousable no s/s of distress 1:1 sitter security cheema will continue to monitor
--- NOTE | 2019-12-30 22:34 | NUR ---
Report given to SUE Gonsalez [facility] Kush Martinez [phone]
--- NOTE | 2019-12-30 22:45 | NUR ---
pt in bed, asleep. easily arousable no s/s of distress safety precautions in place will continue to monitor
--- NOTE | 2019-12-30 23:00 | NUR ---
pt in bed, asleep. easily arousable no s/s of distress will continue to monitor pt
--- NOTE | 2019-12-30 23:15 | NUR ---
pt in bed, asleep. easily arousable no s/s of distress will continue to monitor
--- NOTE | 2019-12-30 23:30 | NUR ---
pt in bed, asleep. no s/s of distress easily arousable will continue to monitor
--- NOTE | 2019-12-30 23:45 | NUR ---
pt in bed asleep. no s/s of distress easily arousable will continue to monitor
--- NOTE | 2019-12-31 | NUR ---
pt in bed, asleep. easily arousable no s/s of distress will continue to monitor
--- NOTE | 2019-12-31 00:15 | NUR ---
pt in bed, asleep. no s/s of distress easily arousable will continue to monitor
--- NOTE | 2019-12-31 00:46 | NUR ---
Pt transfered to [facility] Kush Martinez AA/Ox4. able to speak in complete sentences. cooperative respirations even and unlabored no s/s of distress Stable condition suicide precautions in place [facility] [address] picked up pt, report given to Clem Engel All belongings with pt
== END 2019-12-31 00:46 | disposition short-term general hospital (02) ==
LOC: ER 18:35
DX: F32.9 Major depressive disorder, single episode, unspecified (principal); R45.851 Suicidal ideations; F17.210 Nicotine dependence, cigarettes, uncomplicated; G89.4 Chronic pain syndrome; J44.9 Chronic obstructive pulmonary disease, unspecified; I48.91 Unspecified atrial fibrillation; I10 Essential (primary) hypertension; K21.9 Gastro-esophageal reflux disease without esophagitis; E78.5 Hyperlipidemia, unspecified
CPT/HCPCS: 36415; 80048; 80076; 80307 ×2; 80329; 81001; 82550; 84443; 85025; 93005; 99285; 99406; G0480; A4663

== ENCOUNTER 2020-01-10 12:36 | Emergency (ER) | payer OTHER ==
[~2020-01-10] VITALS: Ht 175.3 cm; Wt 77.1 kg
[2020-01-10] MEDS ORDERED: TRAMADOL HCL 50 MG TABLET PO ONE (13:00)
--- NOTE | 2020-01-10 13:17 | NUR ---
1 to 1 sitter at the bedside.
[2020-01-10 13:18] LABS: BASOPHILS % (AUTO) 0.1 % (0.0-2.0); EOSINOPHILS # (AUTO) 0.1 K/uL (0.0-0.7); EOSINOPHILS % (AUTO) 0.7 % (0.0-7.0); HEMOGLOBIN 13.1 g/dL (12.5-16.3); LYMPHOCYTES % (AUTO) 24.6 % (20.5-51.5); MEAN CORPUSCULAR HEMOGLOBIN 31.2 uug (23.8-33.4); MEAN CORPUSCULAR HGB CONC 33 g/dL (32.5-36.3); MONOCYTES # (AUTO) 0.7 K/uL (2.0-10.0); MONOCYTES % (AUTO) 6.1 % (0.0-11.0); NEUTROPHILS # (AUTO) 8.4 K/uL (1.8-8.9); NEUTROPHILS % (AUTO) 68.5 % (38.5-71.5); PLATELET COUNT (AUTO) 393 K/uL (152-348); RED BLOOD CELL COUNT(AUTO) 4.21 MIL/uL (4.06-5.63); WHITE BLOOD COUNT (AUTO) 12.3 K/uL (3.6-10.2)
[2020-01-10] MEDS ORDERED: TRAMADOL HCL 50 MG TABLET ONE (13:26)
[2020-01-10 13:32] LABS: *BILIRUBIN,URIN NEGATIVE (NEGATIVE); *BLOOD, URINE NEGATIVE (NEGATIVE); *CLARITY,URINE CLEAR (CLEAR); *COLOR,URINE YELLOW (YELLOW); *KETONES,URINE NEGATIVE (NEGATIVE); *UROBILINOGEN,URINE 0.2 E.U./dl (NORMAL); LEUKOCYTE ESTERASE ,URINE NEGATIVE (NEGATIVE); NITRITE, URINE NEGATIVE (NEGATIVE); PH,URINE 5.5 (5.0-8.0); UGLUCOSE NEGATIVE (NEGATIVE)
[2020-01-10 13:32] LABS: CARBON DIOXIDE 28 mmol/L (21-32); CHLORIDE 106 mmol/L (98-107); GLUCOSE 107 mg/dL (74-106); POTASSIUM 3.3 mmol/L (3.5-5.1); UREA NITROGEN, BLOOD 23 mg/dL (7-18)
[2020-01-10 13:38] LABS: ALANINE AMINOTRANSFERASE 19 U/L (16-63); ALKALINE PHOSPHATASE 58 U/L (50-136); ASPARTATE AMINOTRANSFERASE 9 U/L (15-37); BILIRUBIN,DIRECT 0.1 mg/dL (0.0-0.2); BILIRUBIN,TOTAL 0.3 mg/dL (0.2-1.0); TOTAL PROTEIN, SERUM 5.9 g/dL (6.4-8.2)
[2020-01-10 13:39] LABS: ACETAMINOPHEN < 2.0 ug/mL (10-30)
[2020-01-10 13:41] LABS: ETHANOL < 3 MG/DL (0-0)
[2020-01-10 13:43] LABS: *AMPHETAMINE, URINE NEGATIVE (NEGATIVE); *BARBITURATE, URINE NEGATIVE (NEGATIVE); *CANNABINOID, URINE NEGATIVE (NEGATIVE); *COCCAINE, URINE NEGATIVE (NEGATIVE); *OPIATE, URINE POSITIVE (NEGATIVE); *PHENCYCLIDINE SCREEN,URINE NEGATIVE (NEGATIVE)
--- NOTE | 2020-01-10 13:48 | NUR ---
Pt medically cleared by Dr Hu. [facility]
--- NOTE | 2020-01-10 15:13 | NUR ---
Jimmy Kenyon at the bedside for psych eval.
[2020-01-10] MEDS ORDERED: HEPARIN SODIUM,PORCINE 5,000 UNITS/ML VIAL ONE (15:45)
[2020-01-10] MEDS ORDERED: POTASSIUM CHLORIDE 20 MEQ TAB.PRT.SR PO ONE (16:30)
[2020-01-10] MEDS ORDERED: NICOTINE 7 MG/24HR PATCH TD STA (16:43)
[2020-01-10] MEDS ORDERED: POTASSIUM CHLORIDE 20 MEQ TAB.PRT.SR ONE (18:09)
--- NOTE | 2020-01-10 19:04 | NUR ---
Called twice in different times to give nurse to nurse report but every time placed on hols for 20 min and disscounented.
--- NOTE | 2020-01-10 19:17 | NUR ---
Report provided for engineering psychologist. VSS. Pt left er in stable condition. All belongings sent w/ pt.
== END 2020-01-10 19:22 ==
LOC: ER 12:36
DX: R45.851 Suicidal ideations (principal); F32.9 Major depressive disorder, single episode, unspecified; E87.6 Hypokalemia; D72.829 Elevated white blood cell count, unspecified; E78.5 Hyperlipidemia, unspecified; G89.4 Chronic pain syndrome; I25.10 Atherosclerotic heart disease of native coronary artery without angina pectoris; I48.91 Unspecified atrial fibrillation; K21.9 Gastro-esophageal reflux disease without esophagitis; J44.9 Chronic obstructive pulmonary disease, unspecified; I11.0 Hypertensive heart disease with heart failure; Z79.899 Other long term (current) drug therapy; Z86.69 Personal history of other diseases of the nervous system and sense organs
CPT/HCPCS: 36415; 80048; 80076; 80307 ×2; 80329; 81001; 85025; 99285; G0480; A4663; A9150; J1644